=== PATIENT | male | born 1985 | race Caucasian/White ===

== ENCOUNTER 2017-04-26 15:48 | Emergency (ER) | payer OTHER ==
[~2017-04-26] VITALS: Ht 177.8 cm; Wt 137.0 kg
[2017-04-26 15:55] VITALS: TEMP 36.5; Ht 177.8 cm; Wt 137.0 kg
[2017-04-26] MEDS ORDERED: AMOXICILLIN/CLAVULANATE TAB 875 MG TAB PO ONE (16:45)
--- NOTE | 2017-04-26 17:20 | DIAGNOSTIC IMAGING REPORT ---
R VENOUS DOPP LOWER EXT UNILAT HISTORY: 31 years-old Male swelling acute swelling of the right lower extremity COMPARISON: None available TECHNIQUE: Multiple real-time sonographic images of the right lower extremity deep venous system were obtained assessing grayscale appearance, color and spectral flow FINDINGS: There is normal flow, phasicity, compressibility and augmentation of the right lower extremity deep venous structures. Mildly enlarged right inguinal lymph node is seen, 4.0 x 1.3 x 2.9 cm, nonspecific. IMPRESSION: 1. No sonographic evidence of deep venous thrombosis. 2. Mildly enlarged nonspecific right inguinal lymph node measures up to 1.3 cm in short axis. The above report was generated using voice recognition software. It may contain grammatical, syntax or spelling errors. Electronically signed by: Stu Clement M.D. 04/26/2017 5:19 PM Dictated Date/Time: 04/26/2017 5:12 PM
[2017-04-26] MEDS ORDERED: AMOX875T PO (17:40)
--- NOTE | 2017-04-26 17:41 | EMERGENCY ROOM VISIT NOTE ---
History Report prepared by Andrewibmel: Rodri Chavez Under the Supervision of: Dr. Kye Black D.O. First contact with patient: 16:00 Chief Complaint: LEG PAIN,LEG INJURY Stated Complaint: MODERATE PAIN,SWELLIN IN BOTH LEGS,POSSIBLY CELLUT History of Present Illness The patient is a 31 year old male who presents to the Emergency Room with complaints of a worsening right leg infection beginning about a month ago. His symptoms began with swelling in his ankle, but moves to the rest of his lower leg two weeks ago. He initially thought his symptoms were related to being on his feet a lot at work. The patient has no history of blood clots. He denies any calf pain. Source of History: patient Onset: about a month ago Position: leg (right lower) Quality: other (infection) Timing: worsening Note: The patient denies calf pain. Review of Systems See HPI for pertinent positives & negatives. A total of 10 systems reviewed and were otherwise negative. Past Medical & Surgical Medical Problems: (1) Depression (2) Heroin overdose Social History Problems: (1) Heroin abuse Family History No pertinent family history stated. Social History Smoking Status: Current Every Day Smoker Drug Use: heroin Marital Status: single Occupation Status: employed Current/Historical Medications Scheduled Amoxicillin & Pot Clavulanate (Augmentin 875-125 mg), 875 MG PO BID Allergies Coded Allergies: No Known Allergies (Unverified , 04/26/17) Physical Exam Vital Signs Date Time Temp Pulse Resp B/P (MAP) Pulse Ox O2 Delivery O2 Flow Rate FiO2 04/26/17 15:55 36.5 99 18 139/95 95 Room Air Physical Exam CONSTITUTIONAL/VITAL SIGNS: Reviewed / noted above. GENERAL: Non-toxic in appearance. INTEGUMENTARY: Warm, dry, and [place]. HEAD: Normocephalic. EYES: without scleral icterus or trauma. ENT/OROPHARYNX: clear and moist. LYMPHADENOPATHY/NECK: Is supple without lymphadenopathy or meningismus. RESPIRATORY: Lungs clear and equal. CARDIOVASCULAR: Regular rate and rhythm. GI/ABDOMEN: Soft and nontender. No organomegaly or pulsatile mass. No rebound or guarding. Normal bowel sounds. EXTREMITIES: Warm and well perfused. Right leg swelling and erythema below the knee. BACK: No CVA tenderness. NEUROLOGICAL: Intact without focal deficits. PSYCHIATRIC: normal affect. MUSCULOSKELETAL: Normally developed with good muscle tone. Medical Decision & Procedures ER Provider Diagnostic Interpretation: Radiology results as stated below per my review and radiologist interpretation: R VENOUS DOPP LOWER EXT UNILAT FINDINGS: There is normal flow, phasicity, compressibility and augmentation of the right lower extremity deep venous structures. Mildly enlarged right inguinal lymph node is seen, 4.0 x 1.3 x 2.9 cm, nonspecific. IMPRESSION: 1. No sonographic evidence of deep venous thrombosis. 2. Mildly enlarged nonspecific right inguinal lymph node measures up to 1.3 cm in short axis. The above report was generated using voice recognition software. It may contain grammatical, syntax or spelling errors. Electronically signed by: Stu Clement M.D. 04/26/2017 5:19 PM Medications Administered Medications (Trade) Dose Ordered Sig/Raine Route Start Time Stop Time Status Last Admin Dose Admin Amoxicillin/ Clavulanate Potassium (Augmentin Tab) 875 mg NOW ONCE PO 04/26/17 16:45 04/26/17 16:46 DC 04/26/17 16:49 875 MG ED Course 1601: Previous medical records were reviewed. The patient was evaluated in room A9B. A complete history and physical examination was performed. 1645: Ordered Augmentin Tab 875 mg PO. 1745: On reevaluation, the patient is resting comfortably. I discussed the results and findings with the patient. He verbalized agreement of the treatment plan. He was discharged home. Medical Decision Differential diagnosis: Etiologies such as cellulitis, abscess, MRSA infection, DVT, necrotizing fasciitis, dermatitis, drug eruption, as well as others were entertained. This is a 31-year-old male who presents to the ED with a chief complaint of redness to the right leg. The patient states that he has noticed worsening of the redness over the past couple of weeks. He denies any fevers, nausea or vomiting. He does report some swelling to the leg. His physical exam does reveal erythema primarily to the anterior portion of the leg between the knee and the ankle. There is some edema to the leg. Ultrasound did not show DVT. The patient was started on Augmentin. He was felt to be stable for discharge and outpatient follow-up. Prescription for Augmentin provided. Medication Reconcilliation Current Medication List: was personally reviewed by me Blood Pressure Screening Patient's blood pressure: Elevated blood pressure Blood pressure disposition: Elevated BP felt to be situational Impression Primary Impression: Cellulitis of leg, right Scribe Attestation The scribe's documentation has been prepared under my direction and personally reviewed by me in its entirety. I confirm that the note above accurately reflects all work, treatment, procedures, and medical decision making performed by me. Departure Information Dispostion Home / Self-Care Prescriptions Amoxicillin & Pot Clavulanate (Augmentin 875-125 mg) 1 Tab Tab 875 MG PO BID, #20 TAB Prov: Kye Black D.O. 04/26/17 Referrals No Doctor, Assigned (PCP) Patient Instructions Cellulitis Dc, My [facility] Additional Instructions Augmentin as prescribed. Follow-up with your doctor for further care and evaluation in 1-2 days. Return to the emergency department for worsening or new symptoms or any concerns. You have been examined and treated today on an emergency basis only. This is not a substitute for, or an effort to provide, complete comprehensive medical care. It is impossible to recognize and treat all injuries or illnesses in a single emergency department visit. It is therefore important that you follow up closely with your doctor. Call as soon as possible for an appointment.
[2017-04-26 18:06] VITALS: BP 134/95; PULSE 93; O2SAT 99
== END 2017-04-26 18:09 | disposition home or self-care (01) ==
LOC: C.EDB 15:50 → C.EDA 18:09
DX: L03.115 Cellulitis of right lower limb (principal); F32.9 Major depressive disorder, single episode, unspecified; F17.200 Nicotine dependence, unspecified, uncomplicated

== ENCOUNTER 2017-09-25 12:53 | Inpatient (IN) | payer OTHER ==
[~2017-09-25] VITALS: Ht 177.8 cm; Wt 150.5 kg
--- NOTE | 2017-09-25 14:35 | EMERGENCY ROOM VISIT NOTE ---
History Report prepared by Socrates: Chriss Brooks Under the Supervision of: Dr. Gale Ferreira D.O. First contact with patient: 14:32 Chief Complaint: OVERDOSE (ACCIDENTAL) Stated Complaint: heroin Nursing Triage Summary: pt arrives via EMS pt reports after partner and himself used heroin last night approx 0100or 0200 passed out on floor of apartment when he awoke partner was per EMS pt given narcan 0.4 mg IV pt currently awake and alert History of Present Illness The patient is a 31 year old male with a history of heroin abuse and major depression who presents to the Emergency Room with police via EMS with a persistent heroin overdose that started last night. He states that he is an occasional heroin user, and injects himself about once every other week. The patient says that he was using heroin last night at home, and was injecting himself. He notes that he did not take any more than he usually does. He says that he went to bed around 0130, and woke up around 8 hours ago, and was "feeling awful". The patient states that his right arm was in a lot of pain, and he could not even pecan picker a glass of water with that arm due to pain. He says that the pain is a lot better now. The patient adds that he was coughing up blood this morning, and says that he has never coughed up blood before. He states that he has been short of breath over the past 2 to 3 days. The patient says that he is a smoker. He notes that he did not mix the heroin with any other drugs or alcohol. He denies any recent cold symptoms, fevers, chills, recent nose bleeds, chest pain, recent dental procedures, changes in bowel movements, or changes in urine. Denies vomiting or diarrhea. The patient adds that he has had a stressful day today, as his friend this morning. He says that he found his friend, and the friend injected at the same time last night and went to bed at the same time last night at the patient's house. The patient adds that he used heroin when he woke up this morning around 0730. He states that he used 2 bags. The patient is on probation currently. EMS gave the patient 0.4 mg IV Narcan. Source of History: patient Onset: Last night Position: other (global) Symptom Intensity: used 2 bags Quality: other (heroin overdose) Timing: other (persistent) Associated Symptoms: + cough (up blood), + SOB, No fevers, No chills, No chest pain, No diarrhea, No urinary symptoms Note: Right arm pain upon waking. Denies cold symptoms, recent nose bleeds. Review of Systems See HPI for pertinent positives & negatives. A total of 10 systems reviewed and were otherwise negative. Past Medical & Surgical Medical Problems: (1) Depression (2) Depression (3) Heroin overdose (4) HTN (hypertension) (5) Pneumonia Social History Problems: (1) Heroin abuse Family History Diabetes mellitus FHx: cancer Heart disease Hypertension Lung disease Social History Smoking Status: Current Every Day Smoker Drug Use: heroin Marital Status: single Occupation Status: employed Current/Historical Medications No Active Prescriptions or Reported Meds Allergies Coded Allergies: No Known Allergies (Unverified , 09/25/17) Physical Exam Vital Signs Date Time Temp Pulse Resp B/P (MAP) Pulse Ox O2 Delivery O2 Flow Rate FiO2 09/25/17 17:47 119 09/25/17 17:03 113 20 155/96 93 Room Air 09/25/17 15:21 113 14 151/97 91 Room Air 09/25/17 14:17 100 20 119/72 93 Room Air 09/25/17 13:36 123 09/25/17 13:05 37.5 130 20 119/72 91 Room Air Physical Exam GENERAL: alert, mildly somnolent but answering questions, no distress EYE EXAM: normal conjunctiva, PERRL and EOM's grossly intact OROPHARYNX: no exudate, no erythema, lips, buccal mucosa, and tongue normal and mucous membranes are dry NECK: supple, no nuchal rigidity, no adenopathy, non-tender LUNGS: Clear to auscultation. Normal chest wall mechanics, no w/r/r HEART: no murmurs, S1 normal and S2 normal ABDOMEN: abdomen soft, non-tender, normo-active bowel sounds, no masses, no rebound or guarding. BACK: Back is symmetrical on inspection and there is no deformity, no midline tenderness, no CVA tenderness. SKIN: no rashes and no bruising UPPER EXTREMITIES: upper extremities are grossly normal. Full range of motion, normal pulses. LOWER EXTREMITIES: No pitting edema. Full range of motion, normal pulses. NEURO EXAM: Normal sensorium, cranial nerves II-XII grossly intact, normal speech, no gross weakness of arms, no gross weakness of legs. No drift. Gross sensation intact. Medical Decision & Procedures ER Provider Diagnostic Interpretation: X-ray results have been interpreted by the radiologist and reviewed by me. CHEST ONE VIEW PORTABLE CLINICAL HISTORY: 31 years-old Male presenting with hemoptysis. TECHNIQUE: Portable upright AP view of the chest was obtained. COMPARISON: 12/20/2014. FINDINGS: Cardiomediastinal silhouette normal. Diffuse hazy opacity throughout the right lung. No large pleural effusion or pneumothorax. Osseous structures normal. Upper abdomen normal. IMPRESSION: 1. Diffuse hazy infiltrate throughout the right lung can be seen in the setting of pulmonary hemorrhage or infection. Asymmetry argues against edema or aspiration. Electronically signed by: Mckay Quesada M.D. 09/25/2017 4:06 PM Dictated Date/Time: 09/25/2017 4:05 PM Laboratory Results Test 09/25/17 12:45 09/25/17 16:55 09/25/17 17:15 Immature Granulocyte % (Auto) 0.5 % White Blood Count 22.20 K/uL (4.8-10.8) Red Blood Count 5.18 M/uL (4.7-6.1) Hemoglobin 15.8 g/dL (14.0-18.0) Hematocrit 46.0 % (42-52) Mean Corpuscular Volume 88.8 fL (80-100) Mean Corpuscular Hemoglobin 30.5 pg (25-34) Mean Corpuscular Hemoglobin Concent 34.3 g/dl (32-36) Platelet Count 268 K/uL (130-400) Mean Platelet Volume 10.6 fL (7.4-10.4) Neutrophils (%) (Auto) 90.0 % Lymphocytes (%) (Auto) 5.5 % Monocytes (%) (Auto) 4.0 % Eosinophils (%) (Auto) 0.0 % Basophils (%) (Auto) 0.0 % Neutrophils # (Auto) 19.98 K/uL (1.4-6.5) Lymphocytes # (Auto) 1.22 K/uL (1.2-3.4) Monocytes # (Auto) 0.89 K/uL (0.11-0.59) Eosinophils # (Auto) 0.00 K/uL (0-0.5) Basophils # (Auto) 0.01 K/uL (0-0.2) Immature Granulocyte # (Auto) 0.10 K/uL (0.00-0.02) Magnesium Level 1.4 mg/dl (1.8-2.4) Total Bilirubin 0.5 mg/dl (0.2-1) Aspartate Amino Transf (AST/SGOT) 76 U/L (15-37) Alanine Aminotransferase (ALT/SGPT) 70 U/L (12-78) Alkaline Phosphatase 56 U/L (45-117) Total Protein 7.3 gm/dl (6.4-8.2) Albumin 4.0 gm/dl (3.4-5.0) Globulin 3.3 gm/dl (2.5-4.0) Albumin/Globulin Ratio 1.2 (0.9-2) Urine Opiates Screen POS (NEG) Urine Methadone, Qualitative NEG (NEG) Urine Barbiturates NEG (NEG) Urine Phencyclidine (PCP) Level NEG (NEG) Ur Amphetamine/Methamphetamine NEG (NEG) MDMA (Ecstasy) Screen NEG (NEG) Urine Benzodiazepines Screen NEG (NEG) Urine Cocaine Metabolite NEG (NEG) Urine Marijuana (THC) NEG (NEG) Prothrombin Time 11.0 SECONDS (9.0-12.0) Prothromb Time International Ratio 1.0 (0.9-1.1) D-Dimer 2690 ug/L FEU (0-500) Laboratory results per my review. Medications Administered Medications (Trade) Dose Ordered Sig/Raine Route Start Time Stop Time Status Last Admin Dose Admin Levofloxacin (Levaquin / D5W) 750 mg NOW STAT IV 09/25/17 16:26 09/25/17 16:27 DC 09/25/17 16:49 750 MG Sodium Chloride 1,000 ml @ 999 mls/hr Q1H1M STAT IV 09/25/17 17:35 09/25/17 18:35 DC 09/25/17 17:35 999 MLS/HR Aspirin/Aluminum/ Magnesium/Ca Carb (Ascriptin Tab) 325 mg NOW STAT PO 09/25/17 17:35 09/25/17 17:37 DC 09/25/17 18:18 325 MG ECG Per My Interpretation Indication: toxicologic Rate (beats per minute): 108 Rhythm: sinus tachycardia Findings: no acute ischemic change, no ectopy, other (normal axis, normal intervals) ED Course 1500: The patient was evaluated in room B3B. A complete history and physical exam was performed. 1626: Levaquin / D5W 750 mg IV. 1722: Upon reevaluation, the patient is resting. I discussed the findings and the treatment plan with the patient. He expresses agreement and understanding. He will be evaluated for further management. 1735: Ascriptin Tab 325 mg PO, NSS 1000 ml @ 999 mls/hr IV. 1738: I reviewed the patient's case with Dr. John RICKS ear muff assembler. She will evaluate the patient for further management. 1800: Updated Dr. Lopez on elevated d-dimer. I feel this is more likely related to the patient's underlying infection. Patient otherwise with no overt risk factors for DVT/PE. She is comfortable following up at this time, does not feel an urgent CT angiogram chest needs to be ordered. Medical Decision Differential diagnosis: Etiologies such as toxicologic, infection, hypoglycemia, electrolyte abnormalities, cardiac sources, intracerebral event, neurologic, as well as others were entertained. Patient initially covered for pneumonia with Levaquin as a possible community- acquired pneumonia in patients known tobacco abuse as patient not hypoxic and with no respiratory distress here, is not highly suspicious of aspiration pneumonia. Upon additional lab work findings, patient found to have leukocytosis, acute kidney injury, as well as elevated troponin. I feel the elevated troponin is less likely due to ACS or primary cardiac etiology, likely secondary to the pneumonia as well as elevated kidney function. Discussed with patient at length the risks of his continued heroin abuse, as well as concern for possible aspiration pneumonia in the setting of his recent heroin abuse. Blood cultures drawn as a precaution. Patient hemodynamically stable throughout , not requiring any supplemental oxygen. Discussed with hospitalist for additional evaluation and treatment. Discussed with them possible indication for additional antibiotic coverage, they would like to evaluate him first prior to adding any additional antibiotics. Medication Reconcilliation Current Medication List: was personally reviewed by me Blood Pressure Screening Patient's blood pressure: Normal blood pressure Consults Time Called: 1732 Consulting Physician: Dr. John RICKS ear muff assembler Returned Call: [phone] I reviewed the patient's case with Dr. John RICKS ear muff assembler. She will evaluate the patient for further management. Impression Primary Impression: Aspiration pneumonia Additional Impressions: Elevated troponin KATHLEEN (acute kidney injury) Heroin abuse Scribe Attestation The scribe's documentation has been prepared under my direction and personally reviewed by me in its entirety. I confirm that the note above accurately reflects all work, treatment, procedures, and medical decision making performed by me. Departure Information Dispostion Being Evaluated By Hospitalist Prescriptions No Active Prescriptions or Reported Meds Referrals No Doctor, Assigned (PCP) Patient Instructions My [facility] Health Problem Qualifiers Primary Impression: Aspiration pneumonia Aspiration pneumonia type: unspecified Laterality: right Lung location: middle lobe of lung Qualified Codes: J69.0 - Pneumonitis due to inhalation of food and vomit
--- NOTE | 2017-09-25 16:07 | DIAGNOSTIC IMAGING REPORT ---
CHEST ONE VIEW PORTABLE CLINICAL HISTORY: 31 years-old Male presenting with hemoptysis. TECHNIQUE: Portable upright AP view of the chest was obtained. COMPARISON: 12/20/2014. FINDINGS: Cardiomediastinal silhouette normal. Diffuse hazy opacity throughout the right lung. No large pleural effusion or pneumothorax. Osseous structures normal. Upper abdomen normal. IMPRESSION: 1. Diffuse hazy infiltrate throughout the right lung can be seen in the setting of pulmonary hemorrhage or infection. Asymmetry argues against edema or aspiration. Electronically signed by: Mckay Quesada M.D. 09/25/2017 4:06 PM Dictated Date/Time: 09/25/2017 4:05 PM
[2017-09-25] MEDS ORDERED: LEVAQUIN 750MG / 150ML D5W IV STA (16:26)
[2017-09-25 16:51] LABS: BASO ABS # 0.01 K/uL (0-0.2); HEMOGLOBIN 15.8 g/dL (14.0-18.0); LYMPH % 5.5 %; LYMPH ABS # 1.22 K/uL (1.2-3.4); MEAN CELL VOLUME 88.8 fL (80-100); MEAN CORPUSCULAR HEMOGLOBIN 30.5 pg (25-34); MEAN CORPUSCULAR HGB CONC 34.3 g/dl (32-36); MEAN PLATELET VOLUME 10.6 fL (7.4-10.4); MONO ABS # 0.89 K/uL (0.11-0.59); NEUT ABS # 19.98 K/uL (1.4-6.5); PLATELET COUNT 268 K/uL (130-400); RED CELL DISTRIBUTION WIDTH CV 13.8 % (11.5-14.5)
[2017-09-25 16:56] LABS: CALCIUM 8.5 mg/dl (8.5-10.1); CREATININE 1.79 mg/dl (0.60-1.40); POTASSIUM 4.3 mmol/L (3.5-5.1)
[2017-09-25 17:05] LABS: TOTAL PROTEIN 7.3 gm/dl (6.4-8.2)
[2017-09-25] MEDS ORDERED: SODIUM CHLORIDE 0.9% 1000ML 1,000 ML IV STA (17:35)
[2017-09-25] MEDS ORDERED: ASPIRIN/ALUM/MAGNES/CAL CARB 325 MG TAB PO STA (17:35)
[2017-09-25] MEDS ORDERED: NITROGLYCERIN 0.4 MG SL PER TAB CHARGE SL PRN (18:15)
[2017-09-25] MEDS ORDERED: HydrALAZINE HCL 20 MG/ML VIAL IV. PRN (18:15)
[2017-09-25] MEDS ORDERED: ACETAMINOPHEN 325 MG TAB PO PRN (18:15)
[2017-09-25] MEDS ORDERED: MAGNESIUM HYDROXIDE SUSP 30 ML UDC PO PRN (18:15)
[2017-09-25] MEDS ORDERED: ALUMINUM/MAGNESIUM/SIMETH (MAALOX MAX) 30 ML UDC PO PRN (18:15)
[2017-09-25] MEDS ORDERED: POLYETHYLENE (MIRALAX) 17 GM PACK PO PRN (18:15)
[2017-09-25] MEDS ORDERED: ONDANSETRON INJ 2 MG/ML 2 ML VIAL IV PRN (18:15)
[2017-09-25] MEDS ORDERED: ALBUT/IPRATROP 3MG/0.5MG NEB 3 ML VIAL INH PRN (18:30)
--- NOTE | 2017-09-25 18:30 | History and Physical ---
History & Physical Date & Time of Service: Sep 25, 2017 at 18:13 Chief Complaint: heroin Primary Care Physician: No Doctor, Assigned History of Present Illness Source: patient, family, clinic records, hospital records Patient is a 31 y/o male, with PMHx of major depression and heroin abuse, who presented to the ED because of heroin overdose. Patient states he used heroin last evening and went to sleep around 0130. When he woke up this AM, he "felt terrible." He notes one episode of coughing up blood. He then used again this AM. He was 4 weeks clean. When he woke up this AM, he found his partner beside him. The partner also used heroin last evening. He denies any other drug use. Denies alcohol use. He notes he did follow w/ psychiatry in the past but currently does not have insurance so stopped. He feels very depressed at present. Father/friend at bedside states this is his 3rd episode of overdose. They are very concerned for his safety and request he be watched closely tonight. Patient states he would like to speak to psychiatry and is interested in inpatient help. Patient denies any fever, chills, sweats, lightheadedness, dizziness, vision changes, CP, palpitations, edema, SOB, wheezing, cough, abdominal pain, nausea, vomiting, diarrhea, urinary symptoms, melena, numbness/tingling, weakness, muscle/joint pain, anxiety/depression, active bleeding, or new skin discoloration/changes. Past Medical/Surgical History Medical Problems: major depression Heroin abuse Obesity Family History Diabetes mellitus FHx: cancer Heart disease Hypertension Lung disease Social History Smoking Status: Current Every Day Smoker Drug Use: heroin Marital Status: single Occupational Status: employed Allergies Coded Allergies: No Known Allergies (Unverified , 09/25/17) Home Medications No Active Prescriptions or Reported Meds Physical Exam Vital Signs Date Time Temp Pulse Resp B/P (MAP) Pulse Ox O2 Delivery O2 Flow Rate FiO2 09/25/17 17:47 119 09/25/17 17:03 113 20 155/96 93 Room Air 09/25/17 15:21 113 14 151/97 91 Room Air 09/25/17 14:17 100 20 119/72 93 Room Air 09/25/17 13:36 123 09/25/17 13:05 37.5 130 20 119/72 91 Room Air General Appearance: no apparent distress, + obese Head: normocephalic, atraumatic Eyes: normal inspection, PERRL ENT: hearing grossly normal Neck: supple Respiratory/Chest: lungs clear, no respiratory distress, no accessory muscle use Cardiovascular: regular rate, rhythm Abdomen/GI: normal bowel sounds, non tender, soft Back: normal inspection Extremities/Musculoskelatal: no calf tenderness, no pedal edema Neurologic/Psych: alert, normal mood/affect, oriented x 3 Skin: normal color, warm/dry, no rash Diagnostics Laboratory Results Results Past 24 Hours Test 09/25/17 12:45 09/25/17 16:55 09/25/17 17:15 Range/Units White Blood Count 22.20 4.8-10.8 K/uL Red Blood Count 5.18 4.7-6.1 M/uL Hemoglobin 15.8 14.0-18.0 g/dL Hematocrit 46.0 42-52 % Mean Corpuscular Volume 88.8 80-100 fL Mean Corpuscular Hemoglobin 30.5 25-34 pg Mean Corpuscular Hemoglobin Concent 34.3 32-36 g/dl Platelet Count 268 130-400 K/uL Mean Platelet Volume 10.6 7.4-10.4 fL Neutrophils (%) (Auto) 90.0 % Lymphocytes (%) (Auto) 5.5 % Monocytes (%) (Auto) 4.0 % Eosinophils (%) (Auto) 0.0 % Basophils (%) (Auto) 0.0 % Neutrophils # (Auto) 19.98 1.4-6.5 K/uL Lymphocytes # (Auto) 1.22 1.2-3.4 K/uL Monocytes # (Auto) 0.89 0.11-0.59 K/uL Eosinophils # (Auto) 0.00 0-0.5 K/uL Basophils # (Auto) 0.01 0-0.2 K/uL RDW Standard Deviation 45.0 36.4-46.3 fL RDW Coefficient of Variation 13.8 11.5-14.5 % Immature Granulocyte % (Auto) 0.5 % Immature Granulocyte # (Auto) 0.10 0.00-0.02 K/uL Sodium Level 136 136-145 mmol/L Potassium Level 4.3 3.5-5.1 mmol/L Chloride Level 103 98-107 mmol/L Carbon Dioxide Level 22 21-32 mmol/L Anion Gap 11.0 3-11 mmol/L Blood Urea Nitrogen 22 7-18 mg/dl Creatinine 1.79 0.60-1.40 mg/dl Est Creatinine Clear Calc Drug Dose 85.9 ml/min Estimated GFR () 56.8 Estimated GFR (Non- 49.0 BUN/Creatinine Ratio 12.3 10-20 Random Glucose 129 70-99 mg/dl Calcium Level 8.5 8.5-10.1 mg/dl Magnesium Level 1.4 1.8-2.4 mg/dl Total Bilirubin 0.5 0.2-1 mg/dl Aspartate Amino Transf (AST/SGOT) 76 15-37 U/L Alanine Aminotransferase (ALT/SGPT) 70 12-78 U/L Alkaline Phosphatase 56 45-117 U/L Troponin I 0.371 0-0.045 ng/ml Total Protein 7.3 6.4-8.2 gm/dl Albumin 4.0 3.4-5.0 gm/dl Globulin 3.3 2.5-4.0 gm/dl Albumin/Globulin Ratio 1.2 0.9-2 Urine Opiates Screen POS NEG Urine Methadone, Qualitative NEG NEG Urine Barbiturates NEG NEG Urine Phencyclidine (PCP) Level NEG NEG Ur Amphetamine/Methamphetamine NEG NEG MDMA (Ecstasy) Screen NEG NEG Urine Benzodiazepines Screen NEG NEG Urine Cocaine Metabolite NEG NEG Urine Marijuana (THC) NEG NEG Prothrombin Time 11.0 9.0-12.0 SECONDS Prothromb Time International Ratio 1.0 0.9-1.1 D-Dimer 2690 0-500 ug/L FEU Microbiology Results 09/25/17 Blood Culture, Ordered Pending 09/25/17 Blood Culture, Ordered Pending Diagnostic Radiology CHEST ONE VIEW PORTABLE CLINICAL HISTORY: 31 years-old Male presenting with hemoptysis. TECHNIQUE: Portable upright AP view of the chest was obtained. COMPARISON: 12/20/2014. FINDINGS: Cardiomediastinal silhouette normal. Diffuse hazy opacity throughout the right lung. No large pleural effusion or pneumothorax. Osseous structures normal. Upper abdomen normal. IMPRESSION: 1. Diffuse hazy infiltrate throughout the right lung can be seen in the setting of pulmonary hemorrhage or infection. Asymmetry argues against edema or aspiration. Electronically signed by: Mckay Quesada M.D. 09/25/2017 4:06 PM Dictated Date/Time: 09/25/2017 4:05 PM The status of this report is Signed. Draft = Not yet reviewed or approved by Radiologist. Signed = Reviewed and approved by Radiologist. EKG JOSEFINA WOODS ID:[id number] 25-SEP-2017 15:47:11 [facility] Sinus tachycardia Possible Anterior infarct , age undetermined Abnormal ECG When compared with ECG of 20-DEC-2014 07:26, No significant change was found Confirmed by TICO LANDIS ([id number]) on 09/25/2017 4:55:47 PM 25mm/s 10mm/mV 150Hz 8.0 SP2 12SL 241 WAQAS: 0 Referred by: Referred Self Confirmed By: TICO Yates. rate 108 BPM KS interval 138 ms QRS duration 78 ms QT/QTc 328/439 ms P-R-T axes 34 -13 22 1985 (31 yr) Male 0lb Room:[facility] Loc:15 Burner Tender:Kanika Farias ind: Impression Assessment and Plan Patient is a 31 y/o male, with PMHx of major depression and heroin abuse, who presented to the ED because of heroin overdose. Elevated troponin, likely demand ischemia: - Admit to tele for cardiac monitoring - Trend cardiac enzymes - Obtain ECHO - Nitro PRN for chest pain R-sided PNA: - IV Levaquin - DuoNeb PRN for SOB/wheezing - BCx, sputum culture, UA pending - Leukocytosis at 22- follow CBC - Elevated d-dimer, low likeness of PE- continue to monitor and consider CTA KATHLEEN: - IV NSS @ 125 ml/hr x1 bag - Follow PRP Heroin abuse, major depression: - Consult psychiatry, appreciate recommendations - Place on one-to-one observation Tobacco abuse: - Nicotine patch - Smoking cessation counselling DVT prophylaxis: TEDs/SCDs; hold chemical anticoagulation due to hemoptysis Code status: LEVEL I, FULL Dispo: From home- would like inpatient rehab- CM consulted Resuscitation Status LEVEL I, FULL VTE Prophylaxis Will order VTE Prophylaxis: Yes
[2017-09-25 19:41] VITALS: BP 116/78; PULSE 97; TEMP 37.2; O2SAT 96; Ht 177.8 cm; Wt 150.5 kg
[2017-09-25] MEDS: NICOTINE 14 MG/24 HR TDSY TD SCH (20:37)
[2017-09-25] MEDS: SODIUM CHLORIDE 0.9% 1000ML 1,000 ML IV SCH (20:37)
[2017-09-25 21:42] LABS: CKMB 69.1 ng/ml (0.5-3.6)
[2017-09-25 23:10] VITALS: BP 102/66; PULSE 93; TEMP 36.7; O2SAT 92
[2017-09-26] VITALS (7 sets, daily range): BP systolic 105–147; BP diastolic 75–91; PULSE 92–102; TEMP 36.7–37; O2SAT 91–95
[2017-09-26] MEDS: SODIUM CHLORIDE 0.9% 1000ML 1,000 ML IV SCH (03:32)
[2017-09-26 04:11] LABS: HEMATOCRIT 37.9 % (42-52); HEMOGLOBIN 13.1 g/dL (14.0-18.0); MEAN CELL VOLUME 87.5 fL (80-100); MEAN CORPUSCULAR HEMOGLOBIN 30.3 pg (25-34); MEAN CORPUSCULAR HGB CONC 34.6 g/dl (32-36); MEAN PLATELET VOLUME 9.9 fL (7.4-10.4); PLATELET COUNT 194 K/uL (130-400); RED CELL DISTRIBUTION WIDTH CV 13.8 % (11.5-14.5); RED CELL DISTRIBUTION WIDTH SD 44.2 fL (36.4-46.3); WHITE BLOOD COUNT 12.82 K/uL (4.8-10.8)
[2017-09-26 04:36] LABS: BLOOD UREA NITROGEN 17 mg/dl (7-18); CALCIUM 8.1 mg/dl (8.5-10.1); CARBON DIOXIDE 27 mmol/L (21-32); CREATININE 0.83 mg/dl (0.60-1.40); GLUCOSE 90 mg/dl (70-99); POTASSIUM 3.3 mmol/L (3.5-5.1); SODIUM 136 mmol/L (136-145)
[2017-09-26 04:46] LABS: CKMB 41.7 ng/ml (0.5-3.6)
[2017-09-26] MEDS ORDERED: PERFLUTREN LIPID MICROSPHERE (DEFINITY) IV ONE (06:59)
[2017-09-26] MEDS ORDERED: POTASSIUM CHLORIDE 10 MEQ TABCR PO STA (08:57)
[2017-09-26] MEDS: NICOTINE 14 MG/24 HR TDSY TD SCH (10:19)
--- NOTE | 2017-09-26 11:15 | Hospitalist Progress Note ---
Hospitalist Progress Note Date of Service Sep 26, 2017. Subjective Pt evaluation today including: conversation w/ patient, conversation w/ groundwater consultant (Psychiatric nurse liaison) Voiding: no voiding problems Patient reports he had $0.50 piece sized red blood globs that he was coughing up yesterday, this morning it is improved and now his sputum looks dark brown in nature. He does feel a little short of breath, but denies chest pain. He denies headache, abdominal pain, nausea, vomiting, or diarrhea, or constipation. No urinary symptoms. He is having pain in the right bicep that started yesterday when he woke up and his right arm is swollen. He denies injecting in that arm, notes that for the last few days he has been injecting only in the left upper extremity. He has a history of several ER visits in the last few years for heroin overdoses, denies any other drug use. He is unsure if this heroin was placed with anything else. He reports he did vomit once yesterday and when he woke up after long coughing spell, but did not notice any vomitus on his clothes or around him when he first woke up. Denies fevers or chills at home, feels a little hot here. He reports a long history of depression, but stopped seeing psychiatrist and stopped taking citalopram last year when he could not no longer afford his health insurance. He admits to passive suicidal ideations, but has no plans to do so currently. Denies homicidal ideations. He woke up to find his partner face down in the bed yesterday. He is quite saddened by this. Constitutional: No fever Eyes: No worsening of vision ENT: + sore throat (a bit this morning) Respiratory: + cough, + sputum, + shortness of breath, + hemoptysis Cardiovascular: No chest pain Breast: No problem reported Abdomen: No pain, No nausea, No vomiting, No diarrhea, No constipation, No GI bleeding Musculoskeletal: + muscle pain (Right biceps as above) Male : No dysuria, No problem reported Neurologic: No problem reported Psychiatric: + depression symptoms, + substance abuse Heme: No problem reported Endo: No problem reported Skin: No problem reported All Other Systems: Reviewed and Negative Objective Vital Signs Telemetry review shows sinus tachycardia to the low 100s at most, PVCs, bigeminy Date Time Temp Pulse Resp B/P (MAP) Pulse Ox O2 Delivery O2 Flow Rate FiO2 09/26/17 07:30 Room Air 09/26/17 07:07 36.8 92 22 137/75 (95) 91 Room Air 09/26/17 04:00 91 Room Air 09/26/17 03:10 36.7 102 21 105/89 (94) 91 Room Air 09/26/17 00:00 92 Room Air 09/25/17 23:10 36.7 93 20 102/66 (78) 92 Room Air 09/25/17 19:41 37.2 97 17 116/78 96 Room Air 09/25/17 18:18 115 20 155/96 95 Room Air 09/25/17 17:47 119 09/25/17 17:03 113 20 155/96 93 Room Air 09/25/17 15:21 113 14 151/97 91 Room Air 09/25/17 14:17 100 20 119/72 93 Room Air 09/25/17 13:36 123 09/25/17 13:05 37.5 130 20 119/72 91 Room Air Physical Exam General Appearance: WD/WN, no apparent distress, + obese Eyes: normal inspection, PERRL, EOMI, sclerae normal ENT: hearing grossly normal, pharynx normal Neck: supple, no adenopathy, thyroid normal, no JVD, trachea midline Respiratory/Chest: no respiratory distress, no accessory muscle use, + rhonchi (On right lower and middle lung mortensen) Cardiovascular: regular rate, rhythm, no gallop, no murmur Abdomen: normal bowel sounds, non tender, soft, no organomegaly Extremities: no pedal edema, no calf tenderness, + swelling (Right upper extremity is with nonpitting edema mostly from the elbow through the fingertips , no erythema at all, no track evans on the right upper extremity, no palpable cords, positive pain with resisted flexion at the elbow, no point tenderness over the elbow wrist or hand or finger joints.) Neurologic/Psychiatric: alert, oriented x 3, + depressed affect Skin: normal color, warm/dry, no rash, + pertinent finding (Track evans on the left upper extremity, no ulcerations on the legs or feet) Lymphatic: no adenopathy Laboratory Results Last 24 Hours Test 09/25/17 12:45 09/25/17 16:55 09/25/17 17:15 09/25/17 20:00 White Blood Count 22.20 K/uL Red Blood Count 5.18 M/uL Hemoglobin 15.8 g/dL Hematocrit 46.0 % Mean Corpuscular Volume 88.8 fL Mean Corpuscular Hemoglobin 30.5 pg Mean Corpuscular Hemoglobin Concent 34.3 g/dl Platelet Count 268 K/uL Mean Platelet Volume 10.6 fL Neutrophils (%) (Auto) 90.0 % Lymphocytes (%) (Auto) 5.5 % Monocytes (%) (Auto) 4.0 % Eosinophils (%) (Auto) 0.0 % Basophils (%) (Auto) 0.0 % Neutrophils # (Auto) 19.98 K/uL Lymphocytes # (Auto) 1.22 K/uL Monocytes # (Auto) 0.89 K/uL Eosinophils # (Auto) 0.00 K/uL Basophils # (Auto) 0.01 K/uL RDW Standard Deviation 45.0 fL RDW Coefficient of Variation 13.8 % Immature Granulocyte % (Auto) 0.5 % Immature Granulocyte # (Auto) 0.10 K/uL Sodium Level 136 mmol/L Potassium Level 4.3 mmol/L Chloride Level 103 mmol/L Carbon Dioxide Level 22 mmol/L Anion Gap 11.0 mmol/L Blood Urea Nitrogen 22 mg/dl Creatinine 1.79 mg/dl Est Creatinine Clear Calc Drug Dose 85.9 ml/min Estimated GFR () 56.8 Estimated GFR (Non- 49.0 BUN/Creatinine Ratio 12.3 Random Glucose 129 mg/dl Calcium Level 8.5 mg/dl Magnesium Level 1.4 mg/dl Total Bilirubin 0.5 mg/dl Aspartate Amino Transf (AST/SGOT) 76 U/L Alanine Aminotransferase (ALT/SGPT) 70 U/L Alkaline Phosphatase 56 U/L Troponin I 0.371 ng/ml Total Protein 7.3 gm/dl Albumin 4.0 gm/dl Globulin 3.3 gm/dl Albumin/Globulin Ratio 1.2 Urine Opiates Screen POS Urine Methadone, Qualitative NEG Urine Barbiturates NEG Urine Phencyclidine (PCP) Level NEG Ur Amphetamine/Methamphetamine NEG MDMA (Ecstasy) Screen NEG Urine Benzodiazepines Screen NEG Urine Cocaine Metabolite NEG Urine Marijuana (THC) NEG Prothrombin Time 11.0 SECONDS Prothromb Time International Ratio 1.0 D-Dimer 2690 ug/L FEU Creatine Kinase MB Ratio Test 09/25/17 21:00 09/26/17 02:25 09/26/17 03:47 Creatine Kinase MB 69.1 ng/ml 41.7 ng/ml Troponin I 0.262 ng/ml 0.182 ng/ml Urine Color YELLOW Urine Appearance CLOUDY Urine pH 5.0 Urine Specific Morley 1.022 Urine Protein NEG Urine Glucose (UA) NEG Urine Ketones NEG Urine Occult Blood NEG Urine Nitrite NEG Urine Bilirubin NEG Urine Urobilinogen NEG Urine Leukocyte Esterase NEG Urine WBC (Auto) 1-5 /hpf Urine RBC (Auto) 0-4 /hpf Urine Hyaline Casts (Auto) 1-5 /lpf Urine Epithelial Cells (Auto) 5-10 /lpf Urine Bacteria (Auto) NEG White Blood Count 12.82 K/uL Red Blood Count 4.33 M/uL Hemoglobin 13.1 g/dL Hematocrit 37.9 % Mean Corpuscular Volume 87.5 fL Mean Corpuscular Hemoglobin 30.3 pg Mean Corpuscular Hemoglobin Concent 34.6 g/dl RDW Standard Deviation 44.2 fL RDW Coefficient of Variation 13.8 % Platelet Count 194 K/uL Mean Platelet Volume 9.9 fL Sodium Level 136 mmol/L Potassium Level 3.3 mmol/L Chloride Level 103 mmol/L Carbon Dioxide Level 27 mmol/L Anion Gap 6.0 mmol/L Blood Urea Nitrogen 17 mg/dl Creatinine 0.83 mg/dl Est Creatinine Clear Calc Drug Dose 187.2 ml/min Estimated GFR () 134.9 Estimated GFR (Non- 116.4 BUN/Creatinine Ratio 20.5 Random Glucose 90 mg/dl Calcium Level 8.1 mg/dl Creatine Kinase MB Ratio Diagnostic Results Chest x-ray images personally reviewed by me and reveals diffuse right-sided opacity with obscuring of the right heart border Assessment and Plan Patient is a 31 y/o male, with PMHx of major depressive disorder, obesity, and heroin abuse, who presented to the ED because of heroin overdose and hemoptysis. Elevated troponin, likely demand ischemia: Serial troponins mildly elevated and decreased since admission, with initial troponin being 0.371. Likely secondary to aspiration pneumonitis and heroin overdose as below. No significant events on telemetry monitoring. ECGs without ischemic changes. No chest pain at all -Echocardiogram result is pending -Okay to transfer to medical floor Right-sided aspiration pneumonitis/hemoptysis/sepsis POA-likely aspirated while sleeping with respiratory depression from heroin overdose. Leukocytosis and sinus tachycardia on admission are now resolved. Remains afebrile. Hemoptysis is improving today. Chest x-ray with diffuse right sided opacities suggestive of pulmonary hemorrhage or infection -Continue IV Levaquin and add IV clindamycin for better coverage for aspiration -Consult pulmonary given hemoptysis to see if needs further evaluation -Supplemental O2 as needed-currently not needing - DuoNeb PRN for SOB/wheezing - BCx, sputum culture pending no growth to date - follow CBC - Elevated d-dimer, likely secondary to acute infectious process, but does have right upper extremity edema and pain-checking venous Doppler of the right upper extremity -Received IV fluids and now discontinued -Repeat chest x-ray in the morning Right upper extremity edema and pain-could be musculoskeletal as he was unconscious and he does not know if he had a fall. There is no evidence of acute infection or palpable cord of thrombophlebitis at this time. -Check right upper extremity venous Doppler -Supportive care KATHLEEN: Creatinine 1.79 on admission and now resolved down to 0.83 with IV fluid hydration - Follow PRP Major depressive disorder, recurrent-previously seen by psych and on citalopram , but discontinued due to lack of health insurance. With passive SI, no plans at this time. Remains on one-to-one - Consult psychiatry, appreciate recommendations -Can likely discontinue one-to-one observation but will await psychiatry recommendations -Needs help with getting into outpatient psychiatric treatment with lack of health insurance IV drug [id number] other substance abuse except occasional alcohol with 3-4 drinks at a time sporadically. -Patient consents to checking for HIV and acute hepatitis -Counseled on abstinence -He may be interested in rehab-appreciate if case management can help with options for this Tobacco abuse: - Nicotine patch - Smoking cessation counseling DVT prophylaxis: TEDs/SCDs; hold chemical anticoagulation due to hemoptysis Code status: LEVEL I, FULL Dispo: Transfer to medical floor, can likely be discharged home tomorrow if continues to improve and if no placement in inpatient psychiatry or inpatient drug rehab There is mention in the notes from social sciences department chair in the ER that he is on probation and there is a possibility of incarceration after discharge
--- NOTE | 2017-09-26 11:30 | ECHOCARDIOGRAM REPORT ---
*NOTICE TO RECEIVING [employer] This information is strictly Confidential and protected under [place] law. [place] law prohibits you from making any further disclosure of this information unless further disclosure is expressly permitted by the written consent of the person to whom it pertains or is authorized by law. A general authorization for the release of medical or other information is not sufficient for this purpose. Hospital accepts no responsibility if the information is made available to any other person, INCLUDING THE PATIENT. Interpretation Summary * Name: JOSEFINA WOODS Study Date: 09/26/2017 06:32 AM BP: 137/75 mmHg * Patient Location: .2E\S\E210\S\1 HR: 92 * : 1985 (M/d/yyyy) Gender: Male Height: 73 in * Age: 31 yrs Ethnicity: [place] Weight: 300 lb * Ordering Physician: Kyugn Steve * Referring Physician: Self, Referred * Performed By: Holly Reinoso RDCS * * Reason For Study: ELEVATED TROP * BSA: 2.6 m2 * -- Conclusions -- * Left ventricular systolic function is normal. * Right ventricular systolic pressure is elevated at 30-40mmHg. Procedure Details * A complete two-dimensional transthoracic echocardiogram was performed (2D, M-mode, Doppler and color flow Doppler). * A contrast injection of Definity was performed to improve assessment of LV function. * Contrast was injected into an intravenous site in the left arm. * One vial of Definity ultrasound contrast was diluted in normal saline to a total volume of 10 ml. A total of '2' ml of solution was administered during imaging. * Lot # [id number] of Definity utilized for procedure. * Expiration date OCT 05. * The attending nurse who injected the contrast agent was CHAYITO BENITEZ RN. Left Ventricle * The left ventricle is normal in size. * There is normal left ventricular wall thickness. * Ejection Fraction = 55-60%. * Left ventricular systolic function is normal. * The left ventricular wall motion is normal. Right Ventricle * The right ventricle is normal in size and function. * The right ventricular systolic function is normal as assessed by tricuspid annular plane systolic excursion (TAPSE) (normal >1.5 cm). Atria * The left atrial size is normal. * Right atrial size is normal. Mitral Valve * The mitral valve is grossly normal. * Significant mitral regurgitation is absent. Tricuspid Valve * The tricuspid valve is not well visualized, but is grossly normal. * There is mild tricuspid regurgitation. * Right ventricular systolic pressure is elevated at 30-40mmHg. Aortic Valve * The aortic valve is not well visualized. * No hemodynamically significant valvular aortic stenosis. * There is no significant aortic regurgitation. Great Vessels * The aortic root is normal size. Pericardium/Pleural * There is no pericardial effusion. Great Vessels * Normal inferior vena cava diameter and respiratory variation suggests normal central venous pressure. MMode 2D Measurements and Calculations IVSd 1.2 cm IVSs 1.7 cm LVIDd 4.2 cm LVIDs 2.8 cm LVPWd 1.1 cm LVPWs 1.7 cm IVS/LVPW 1.1 FS 33.2 % EDV(Teich) 80.2 ml ESV(Teich) 30.3 ml EF(Teich) 62.2 % EDV(cubed) 76.1 ml ESV(cubed) 22.7 ml EF(cubed) 70.2 % % IVS thick 37.3 % % LVPW thick 44.8 % LV mass(C)d 179.6 grams LV mass(C)dI 70.3 grams/m\S\2 LV mass(C)s 180.0 grams LV mass(C)sI 70.4 grams/m\S\2 SV(Teich) 49.9 ml SI(Teich) 19.5 ml/m\S\2 SV(cubed) 53.4 ml SI(cubed) 20.9 ml/m\S\2 Ao root diam 3.7 cm Ao root area 11.0 cm\S\2 LA dimension 2.9 cm LA/Ao 0.79 LVAd ap4 38.7 cm\S\2 LVLd ap4 9.3 cm EDV(MOD-sp4) 131.8 ml EDV(sp4-el) 136.8 ml LVAs ap4 22.2 cm\S\2 LVLs ap4 7.6 cm ESV(MOD-sp4) 52.9 ml ESV(sp4-el) 54.9 ml EF(MOD-sp4) 59.9 % EF(sp4-el) 59.9 % LVAd ap2 38.5 cm\S\2 LVLd ap2 8.9 cm EDV(MOD-sp2) 135.6 ml EDV(sp2-el) 141.1 ml LVAs ap2 23.7 cm\S\2 LVLs ap2 7.6 cm ESV(MOD-sp2) 60.4 ml ESV(sp2-el) 63.1 ml EF(MOD-sp2) 55.4 % EF(sp2-el) 55.3 % LVLd %diff -4.49 % EDV(MOD-bp) 137.6 ml LVLs %diff -0.16 % ESV(MOD-bp) 56.8 ml EF(MOD-bp) 58.7 % SV(MOD-sp4) 79.0 ml SI(MOD-sp4) 30.9 ml/m\S\2 SV(MOD-sp2) 75.2 ml SI(MOD-sp2) 29.4 ml/m\S\2 SV(MOD-bp) 80.8 ml SI(MOD-bp) 31.6 ml/m\S\2 SV(sp4-el) 82.0 ml SI(sp4-el) 32.1 ml/m\S\2 SV(sp2-el) 78.1 ml SI(sp2-el) 30.5 ml/m\S\2 Doppler Measurements and Calculations Ao V2 max 118.2 cm/sec Ao max PG 5.6 mmHg Ao max PG (full) 0.99 mmHg LV V1 max PG 4.6 mmHg LV V1 max 107.2 cm/sec TR max sean 266.9 cm/sec
--- NOTE | 2017-09-26 11:40 | DIAGNOSTIC IMAGING REPORT ---
RIGHT UPPER EXTREMITY VENOUS DOPPLER HISTORY: Right upper extremity edema, rule out DVT COMPARISON STUDY: None. FINDINGS: The right internal jugular vein is patent. There is normal flow within the right subclavian vein. There is normal flow and compressibility within the right axillary, basilic, brachial, radial, ulnar, and visualized cephalic veins. IMPRESSION: No DVT within the right upper extremity. Electronically signed by: Mukul Maldonado M.D. 09/26/2017 11:39 AM Dictated Date/Time: 09/26/2017 11:39 AM
[2017-09-26 13:22] LABS: HEP C IGG 13 YRS+OLDER_RFLX PRELIM POS (NEG)
[2017-09-26] MEDS: CLINDAMYCIN IV 600 MG in DEXTROSE 5% 50ML 50 ML IV SCH ×2 (13:31→22:06)
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
--- NOTE | 2017-09-26 15:23 | Pulmonary Consultation ---
History General Date of Service: Sep 26, 2017. Stated Complaint: Renzo, Elevated Troponin, Heroin Abuse, Pneumonia HPI The patient is a 31 year old male who presents to [facility] with complaints of Renzo, Elevated Troponin, Heroin Abuse, Pneumonia. The patient' s primary care provider is No Doctor, Assigned. 31-year-old male admitted status post hair when overdose and noted to have diffuse pulmonary infiltrative process, positive cardiac enzymes and mild hypoxemia noted on pulse oximetry. Patient noted he last use here when at 1300 hours on 09/25/2017. He will the next morning with diffuse myalgias, fatigue and mild hemoptysis. Since that time the patient has had 3 or 4 episodes of hemoptysis 1 this morning which she describes as dried up blood. Patient also awoke yesterday morning with his 3 year partner named Angelo lying next to him . 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 He has a PmHx: heroin overdose x3/chronic abuse, major depressive disorder Inpatient workup WBC: [id number] D-dimer: 2690 Troponin: 0.371--0.262--0.182 Urine tox screen: Ethy alcohol >176, opiates: Positive Hepatitis C antibody: Preliminary positive Hepatitis C RNA: Pending HIV studies: Negative Hepatitis B antibody testing: Pending Microbiology: Sputum expectorated, blood 2pending Right upper extremity ultrasound: No DVT Lower extremity venous ultrasound: No sonographic evidence of DVTs, mildly enlarged nonspecific right inguinal lymph node 1.3 cm short axis CXR compared to 12/20/2014: Increased hilar fullness, peribronchial cuffing, interstitial changes with cephalization right greater than left Echocardiogram 09/26/2017 LV: ef=55-60%, normal function RV: Normal size and function, TAPSE >1.5cm Atria: Left and right within normal limits Valves: Within normal limits RSVP: 30-40mmHg Great vessels: Within normal limits Inpatient medications 1. Levofloxacin 750 mg IV daily 2. NicoDerm patch 14 mg 3. Duo nebs every 4 hours as needed shortness of breath Past medical history: 1. Left arm laceration 11/22/1998 2. Left leg laceration 12/06/1998 3. Heroin overdose 3 4. Alcohol: Denies use 5. Depression 6. Foreign body/glass right third finger 7. Cellulitis of the right leg 8. Obesity Past surgical history 1. None per the patient Social history Narcotics: Chronic heroin abuse Occupation: Marital status: Tobacco history: Current everyday smoker Family history Diabetes, heart disease, hypertension, cancer, lung disease, Outpatient medications Allergies No known drug allergies Historian: patient, EMS Review of Systems Constitutional: reports: weakness Eyes: reports: no symptoms ENT: reports: rhinorrhea Cardiovascular: reports: no symptoms Respiratory: reports: as stated in HPI Gastrointestinal: reports: no symptoms Genitourinary - Male: reports: no symptoms Musculoskeletal: reports: myalgias Integumentary: reports: no symptoms Neurologic: reports: no symptoms Psychiatric: reports: no symptoms Endocrine: no symptoms Hematologic / Lymphatic: no symptoms Allergic / Immunologic: no symptoms Past Medical History Past Medical History: Please refer to HPI Past Surgical History: Please refer to HPI Family History Diabetes mellitus FHx: cancer Heart disease Hypertension Lung disease Please refer to HPI Social History Please refer to HPI Hx Tobacco Use In Past Year?: Yes Smoking Status: Current Every Day Smoker Marital status: single Occupational Status: employed History of MDRO History of MDRO: No Allergies Coded Allergies: No Known Allergies (Unverified , 09/25/17) Current Medications Reported Home Medications Medications Dose Route/Sig Max Daily Dose Days Date Category No Active Prescriptions or Reported Medications Rx Physical Physical Exam Vital Signs: Date Time Temp Pulse Resp B/P (MAP) Pulse Ox O2 Delivery O2 Flow Rate FiO2 09/26/17 12:09 36.8 97 18 135/91 (106) 95 09/26/17 11:02 36.8 92 22 91 09/26/17 07:30 Room Air 09/26/17 07:07 36.8 92 22 137/75 (95) 91 Room Air 09/26/17 04:00 91 Room Air 09/26/17 03:10 36.7 102 21 105/89 (94) 91 Room Air 09/26/17 00:00 92 Room Air 09/25/17 23:10 36.7 93 20 102/66 (78) 92 Room Air 09/25/17 19:41 37.2 97 17 116/78 96 Room Air 09/25/17 18:18 115 20 155/96 95 Room Air 09/25/17 17:47 119 09/25/17 17:03 113 20 155/96 93 Room Air 09/25/17 15:21 113 14 151/97 91 Room Air General Appearance: WELL-APPEARING, NO APPARENT DISTRESS Head: NORMOCEPHALIC, ATRAUMATIC Eyes: PERRLA, NO DISCHARGE, EOMI, SCLERAE NORMAL, CONJUNCTIVAE NORMAL, FUNDUSCOPIC EXAM NORMAL ENT: NORMAL EAR EXAM, NORMAL NASAL EXAM, other (Small bite on the patient's tongue left tip/lateral lingual surface) Neck: NORMAL RANGE OF MOTION, NO TENDERNESS, TRACHEA MIDLINE, NO STRIDOR Respiratory: other (Mild crackles appreciated diffusely) Cardiovasular: REGULAR RATE/RHYTHM, NORMAL S1S2, NO M/G/R, NO MURMUR, NO GALLOP Abdomen: NON TENDER, NORMAL BOWEL SOUNDS, NO REBOUND, NO MASSES, NO GUARDING, NO ORGANOMEGALY, NORMAL RECTAL EXAM Genitourinary - Male: EXTERNAL GENITALIA NORMAL Back: NORMAL INSPECTION, NO MIDLINE TENDERNESS, NO CVA TENDERNESS, NO PARAVERTEBRAL TTP Upper Extremities: NO EDEMA, other (Multiple injection sites noted along his left upper extremity forearm medial lateral region) Lower Extremities: NO EDEMA, NO DEFORMITY, NORMAL ROM Pulses: carotid (R) (2+), carotid (L) (2+), posterior tibial (R) (2+), posterior tibial (L) (2+) Neuro: ALERT, ORIENTED x 3, NORMAL MOTOR EXAM, NORMAL SENSATION, NORMAL CEREBELLAR EXAM, NORMAL SPEECH, NORMAL GAIT Reflexes: biceps (R) (2+), bicpes (L) (2+), achilles (R) (2+), achilles (L) (2+ ) Babinski Testing: right (downgoing), left (downgoing) Psychiatric: NORMAL AFFECT, NO SUICIDAL IDEATION, CONTRACTS FOR SAFETY Diagnostics Labs Results Past 24 Hours Test 09/25/17 16:55 09/25/17 17:15 09/25/17 20:00 09/25/17 21:00 Range/Units Urine Opiates Screen POS NEG Urine Methadone, Qualitative NEG NEG Urine Barbiturates NEG NEG Urine Phencyclidine (PCP) Level NEG NEG Ur Amphetamine/Methamphetamine NEG NEG MDMA (Ecstasy) Screen NEG NEG Urine Benzodiazepines Screen NEG NEG Urine Cocaine Metabolite NEG NEG Urine Marijuana (THC) NEG NEG Prothrombin Time 11.0 9.0-12.0 SECONDS Prothromb Time International Ratio 1.0 0.9-1.1 D-Dimer 2690 0-500 ug/L FEU Creatine Kinase MB Ratio 0-3.0 Creatine Kinase MB 69.1 0.5-3.6 ng/ml Troponin I 0.262 0-0.045 ng/ml Test 09/26/17 02:25 09/26/17 03:47 09/26/17 11:42 09/26/17 11:46 Range/Units Urine Color YELLOW Urine Appearance CLOUDY CLEAR Urine pH 5.0 4.5-7.5 Urine Specific [place] 1.022 1.000-1.030 Urine Protein NEG NEG Urine Glucose (UA) NEG NEG Urine Ketones NEG NEG Urine Occult Blood NEG NEG Urine Nitrite NEG NEG Urine Bilirubin NEG NEG Urine Urobilinogen NEG NEG Urine Leukocyte Esterase NEG NEG Urine WBC (Auto) 1-5 0-5 /hpf Urine RBC (Auto) 0-4 0-4 /hpf Urine Hyaline Casts (Auto) 1-5 0-5 /lpf Urine Epithelial Cells (Auto) 5-10 0-5 /lpf Urine Bacteria (Auto) NEG NEG White Blood Count 12.82 4.8-10.8 K/uL Red Blood Count 4.33 4.7-6.1 M/uL Hemoglobin 13.1 14.0-18.0 g/dL Hematocrit 37.9 42-52 % Mean Corpuscular Volume 87.5 80-100 fL Mean Corpuscular Hemoglobin 30.3 25-34 pg Mean Corpuscular Hemoglobin Concent 34.6 32-36 g/dl RDW Standard Deviation 44.2 36.4-46.3 fL RDW Coefficient of Variation 13.8 11.5-14.5 % Platelet Count 194 130-400 K/uL Mean Platelet Volume 9.9 7.4-10.4 fL Sodium Level 136 136-145 mmol/L Potassium Level 3.3 3.5-5.1 mmol/L Chloride Level 103 98-107 mmol/L Carbon Dioxide Level 27 21-32 mmol/L Anion Gap 6.0 3-11 mmol/L Blood Urea Nitrogen 17 7-18 mg/dl Creatinine 0.83 0.60-1.40 mg/dl Est Creatinine Clear Calc Drug Dose 187.2 ml/min Estimated GFR () 134.9 Estimated GFR (Non- 116.4 BUN/Creatinine Ratio 20.5 10-20 Random Glucose 90 70-99 mg/dl Calcium Level 8.1 8.5-10.1 mg/dl Creatine Kinase MB 41.7 0.5-3.6 ng/ml Creatine Kinase MB Ratio 0-3.0 Troponin I 0.182 0-0.045 ng/ml HIV (1&2) Ab and P24 Ag, 4th Gener NEG NEG Hepatitis B Surface Antigen NEG NEG Hepatitis C Antibody PRELIM POS NEG Microbiology Results 09/25/17 Blood Culture, Received Pending 09/25/17 Blood Culture, Received Pending 09/26/17 Gram Stain, Received Pending 09/26/17 Sputum Culture, Received Pending Diagnostic Radiology Please refer to HPI EKG Interpretation: NORMAL EKG Impression Assessment and Plan 31-year-old male admitted status post heroin overdose with diffuse pulmonary infiltrates, elevated Troponins and mild hypoxemia: 1. Respiratory: Pulmonary complications from heroin use especially injections can have a broad range of physiologic responses in the body such as pneumonia, septic pulmonary emboli, foreign body granulomatosis, bullous lung disease, interstitial lung changes, vasculitis, pulmonary hypertension as well as asthma like reactions and non cardiogenic pulmonary edema. At this time the patient's clinical presentation and current workup do suggest noncardiogenic pulmonary edema. If this is the case the patient's mild hypoxemia as well as pulmonary infiltrate should clear up within a 42-72 hour window. At this time I would like to hold off on a ordering any active labs to workup vasculitis, infectious etiologies a rheumatologic disorders and wait for the 42-72 hour window. 2. Hypoxia: Possible patient's mild hypoxemia is associated with noncardiogenic pulmonary edema secondary to his here when overdose. EKG and cardiac enzymes showed no signs of nusrat cardiac deterioration. 3. Sleep apnea: Patient's clinical history and presentation are suggestive of sleep apnea. This could have been exacerbated by his here when use. Will perform nocturnal desaturation study.
[2017-09-26] MEDS ORDERED: LEVOFLOXACIN / D5W 750 MG in PREMIXED IN D5W 150 ML IV SCH (16:00)
[2017-09-26] MEDS ORDERED: CITALOPRAM 20 MG TAB PO SCH (21:00)
[2017-09-27 00:23] VITALS: BP 153/94; PULSE 91; TEMP 36.7; O2SAT 94
[2017-09-27] MEDS: CLINDAMYCIN IV 600 MG in DEXTROSE 5% 50ML 50 ML IV SCH (05:36)
[2017-09-27 05:41] VITALS: PULSE 84; O2SAT 92
[2017-09-27 07:07] VITALS: BP 143/83; PULSE 79; TEMP 36.8; O2SAT 92
[2017-09-27 07:58] LABS: HEMATOCRIT 37.7 % (42-52); HEMOGLOBIN 12.7 g/dL (14.0-18.0); MEAN CELL VOLUME 87.3 fL (80-100); MEAN CORPUSCULAR HEMOGLOBIN 29.4 pg (25-34); MEAN CORPUSCULAR HGB CONC 33.7 g/dl (32-36); MEAN PLATELET VOLUME 9.9 fL (7.4-10.4); PLATELET COUNT 214 K/uL (130-400); RED CELL DISTRIBUTION WIDTH CV 13.6 % (11.5-14.5); RED CELL DISTRIBUTION WIDTH SD 43.6 fL (36.4-46.3); WHITE BLOOD COUNT 7.66 K/uL (4.8-10.8)
--- NOTE | 2017-09-27 08:04 | DIAGNOSTIC IMAGING REPORT ---
CHEST 2 VIEWS ROUTINE HISTORY: Follow-up right-sided pneumonia COMPARISON: Chest 09/25/2017. FINDINGS: No pneumothorax. No pleural effusions. The heart is normal in size. Improved aeration within the right lung with near complete resolution of the opacity. The left lung remains clear. IMPRESSION: Near complete resolution of the right lung airspace opacity. This may represent a resolving pneumonitis or pulmonary edema. Electronically signed by: Mukul Maldonado M.D. 09/27/2017 8:03 AM Dictated Date/Time: 09/27/2017 8:01 AM
[2017-09-27 08:26] LABS: HEPATITIS A IGM TC 51813E NON-REACTIVE (NON-REACTIVE); HEPATITIS B CORE IGM TC51854R NON-REACTIVE (NON-REACTIVE)
[2017-09-27] MEDS: NICOTINE 14 MG/24 HR TDSY TD SCH (08:28)
[2017-09-27 08:31] LABS: CALCIUM 8.8 mg/dl (8.5-10.1); CREATININE 0.77 mg/dl (0.60-1.40); POTASSIUM 4.1 mmol/L (3.5-5.1)
[2017-09-27] MEDS ORDERED: POTASSIUM CHLORIDE 10 MEQ TABCR PO STA (08:33)
--- NOTE | 2017-09-27 11:26 | Pulmonology Progress Note ---
Pulmonary Progress Note Date of Service Sep 27, 2017. Attending Dr. Jerome Subjective Patient's pulmonary status greatly improved in the last 24 hours. Currently denies any hemoptysis Objective Patient ambulating throughout the room on room air no signs of respiratory insufficiency Vital signs: Stable on room air saturating between 92-95% WBC: [id number] H/H: 13/38 D-dimer: 2690 HIV: Negative Pending HCV RNA Chest x-ray 09/27/2017: Dramatic improvement in the patient's right greater than left opacifications/hilar fullness/peribronchial cuffing Nocturnal oximetry study 09/26-04/2018: SaO2<88% for 21min Medications 1. Levofloxacin 750 mg daily/day 2 2. Clindamycin 600 mg IV every 8 3. Nicotine patch 4. Duo nebs every 4 hours as needed shortness of breath Assessment & Plan 31-year-old male admitted status post heroin overdose with diffuse pulmonary infiltrates, elevated Troponins and mild hypoxemia: 1. Respiratory: Patient's respiratory status has notably stabilized and improved and his chest x-ray is showing dramatic improvement. Patient's clinical presentation and response is classic for noncardiogenic heroin-induced pulmonary edema. This time I do not believe the patient needs further workup/ bronchoscopic evaluation. 2. Nocturnal Hypoxemia: The patient's history and body habitus would suggest SHASHA and his nocturnal desaturation study showed a prolonged period of desaturation up to 21 minutes SaO2 less than 88%. This level of desaturation could be from his current disease or from chronic SHASHA. At this time we should make sure this patient is d/c on 2Lnc while sleeping and my office is going to try and set him up for a home sleep study. Data Medications: Current Inpatient Medications Medications (Trade) Dose Ordered Sig/Raine Route Start Time Stop Time Status Last Admin Dose Admin Acetaminophen (Tylenol Tab) 650 mg Q4H PRN PO 09/25/17 18:15 10/25/17 18:14 Al Hydrox/Mg Hydrox/Simethicone (Maalox Max Susp) 15 ml Q4H PRN PO 09/25/17 18:15 10/25/17 18:14 Magnesium Hydroxide (Milk Of Magnesia Susp) 30 ml Q12H PRN PO 09/25/17 18:15 10/25/17 18:14 Ondansetron HCl (Zofran Inj) 4 mg Q6H PRN IV 09/25/17 18:15 10/25/17 18:14 Nitroglycerin (Nitrostat Tab) 0.4 mg UD PRN SL 09/25/17 18:15 10/25/17 18:14 Polyethylene (Miralax Powder Packet) 17 gm DAILY PRN PO 09/25/17 18:15 10/25/17 18:14 Levofloxacin 750 mg/Prmx 150 ml @ 100 mls/hr Q24H IV 09/26/17 16:00 10/02/17 15:59 09/26/17 15:45 100 MLS/HR Hydralazine HCl (HydrALAZINE INJ) 10 mg Q6H PRN IV. 09/25/17 18:15 10/25/17 18:14 Albuterol/ Ipratropium (Duoneb) 3 ml Q4R PRN INH 09/25/17 18:30 10/25/17 18:29 Nicotine (Nicoderm Cq 14MG Patch) 1 patch QAM TD 09/26/17 09:00 10/26/17 08:59 09/27/17 08:28 1 PATCH Miscellaneous (Remove Nicoderm Patch) 1 ea HS N/A 09/25/17 21:00 10/25/17 20:59 09/26/17 20:57 1 EA Clindamycin Phosphate 600 mg/ Dextrose 54 ml @ 100 mls/hr Q8H IV 09/26/17 14:00 10/03/17 13:59 09/27/17 05:36 100 MLS/HR Citalopram Hydrobromide (celeXA TAB) 20 mg HS PO 09/26/17 21:00 10/26/17 20:59 09/26/17 20:58 20 MG Vital Signs: Date Time Temp Pulse Resp B/P (MAP) Pulse Ox O2 Delivery O2 Flow Rate FiO2 09/27/17 09:00 Room Air 09/27/17 07:07 36.8 79 17 143/83 (103) 92 Room Air 09/27/17 05:41 84 14 92 Room Air 09/27/17 00:23 36.7 91 20 153/94 (113) 94 Room Air 09/27/17 00:00 Room Air 09/26/17 20:00 Room Air 09/26/17 16:45 Room Air 09/26/17 15:23 37.0 100 18 147/84 (105) 95 09/26/17 12:09 36.8 97 18 135/91 (106) 95 Laboratory Results: Last 24 Hours Test 09/26/17 11:42 09/26/17 11:46 09/27/17 07:29 HIV (1&2) Ab and P24 Ag, 4th Gener NEG Hepatitis A IgM Antibody NON-REACTIVE Hepatitis B Surface Antigen NEG Hepatitis B Core IgM Antibody NON-REACTIVE Hepatitis C Antibody PRELIM POS White Blood Count 7.66 K/uL Red Blood Count 4.32 M/uL Hemoglobin 12.7 g/dL Hematocrit 37.7 % Mean Corpuscular Volume 87.3 fL Mean Corpuscular Hemoglobin 29.4 pg Mean Corpuscular Hemoglobin Concent 33.7 g/dl RDW Standard Deviation 43.6 fL RDW Coefficient of Variation 13.6 % Platelet Count 214 K/uL Mean Platelet Volume 9.9 fL Sodium Level 139 mmol/L Potassium Level 4.1 mmol/L Chloride Level 106 mmol/L Carbon Dioxide Level 24 mmol/L Anion Gap 9.0 mmol/L Blood Urea Nitrogen 11 mg/dl Creatinine 0.77 mg/dl Est Creatinine Clear Calc Drug Dose 202.6 ml/min Estimated GFR () 139.2 Estimated GFR (Non- 120.1 BUN/Creatinine Ratio 14.5 Random Glucose 88 mg/dl Calcium Level 8.8 mg/dl
[2017-09-27] MEDS ORDERED: CLX20 PO (12:18)
[2017-09-27] MEDS ORDERED: CLIN300C2 PO (12:18)
--- NOTE | 2017-09-27 12:23 | Discharge Instructions ---
Discharge Instructions Date of Service Sep 27, 2017. Admission Reason for Admission: Renzo, Elevated Troponin, Heroin Abuse, Pneumonia Discharge Discharge Diagnosis / Problem: Hemoptysis,Pneumonia,RENZO,Demand ischemia Discharge Goals Goal(s): Improve disease control, Diagnostic testing, Therapeutic intervention Activity Recommendations Activity Limitations: resume your previous activity Shower/Bathe: no limitations . Instructions / Follow-Up Instructions / Follow-Up You were admitted with coughing up blood after a heroin overdose. You had a suspected aspiration pneumonia, and possible noncardiogenic pulmonary edema related to heroin use. All of your symptoms were significantly improved. Your heart and kidneys are functioning normally. Please finish out a course of antibiotics for the presumed pneumonia. Your ultrasound of the heart shows signs of elevated right heart pressure which may be from undiagnosed sleep apnea. It is recommended that you have a sleep study at some point to look for sleep apnea. You were preliminarily positive for Hepatitis C and your family doctor at [facility] can refer you to Infectious Disease if the confirmatory testing indeed is also positive. Please follow up with [facility] within 1 week after discharge. Current Hospital Diet Patient's current hospital diet: Regular Diet Discharge Diet Recommended Diet: Regular Diet Procedures Procedures Performed: Chest xray x 2 Echocardiogram Overnight oximetry test Pending Studies Studies pending at discharge: yes List of pending studies: final blood culture and sputum culture result Laboratory Results Last 24 Hours Test 09/27/17 07:29 White Blood Count 7.66 K/uL Red Blood Count 4.32 M/uL Hemoglobin 12.7 g/dL Hematocrit 37.7 % Mean Corpuscular Volume 87.3 fL Mean Corpuscular Hemoglobin 29.4 pg Mean Corpuscular Hemoglobin Concent 33.7 g/dl RDW Standard Deviation 43.6 fL RDW Coefficient of Variation 13.6 % Platelet Count 214 K/uL Mean Platelet Volume 9.9 fL Sodium Level 139 mmol/L Potassium Level 4.1 mmol/L Chloride Level 106 mmol/L Carbon Dioxide Level 24 mmol/L Anion Gap 9.0 mmol/L Blood Urea Nitrogen 11 mg/dl Creatinine 0.77 mg/dl Est Creatinine Clear Calc Drug Dose 202.6 ml/min Estimated GFR () 139.2 Estimated GFR (Non- 120.1 BUN/Creatinine Ratio 14.5 Random Glucose 88 mg/dl Calcium Level 8.8 mg/dl Medical Emergencies . Who to Call and When: Medical Emergencies: If at any time you feel your situation is an emergency, please call 911 immediately. . Non-Emergent Contact Non-Emergency issues call your: Primary Care Provider Call Non-Emergent contact if: you have a fever, temperature is above 101, you have any medication questions . . "Provider Documentation" section prepared by Tammi Elliott. .
--- NOTE | 2017-09-27 12:37 | Discharge Summary ---
Discharge Summary Date of Service Sep 27, 2017. Discharge Summary Admission Date: Sep 25, 2017 at 18:13 Discharge Date: Sep 27, 2017 Discharge Disposition: Home Principal Diagnosis: Hemoptysis, Aspiration PNA Problems/Secondary Diagnoses: Sepsis POA Right upper extremity pain and swelling-musculoskeletal injury Major depressive disorder Noncardiogenic pulmonary edema from heroin use Obesity KATHLEEN Demand myocardial ischemia Hypokalemia Hypomagnesemia Hepatitis C antibody preliminarily positive Procedures: Venous Doppler RUE-negative for DVT Chest xray x 2 ECHO: * Left ventricular systolic function is normal. * Right ventricular systolic pressure is elevated at 30-40mmHg. Overnight oximetry-longest continuous pulse ox less than 88% was for 88 seconds , minimum pulse ox 69% 1 Consultations: Pulmonology Psychiatry Medication Reconciliation New Medications: Clindamycin Hcl (Cleocin) 300 Mg Cap 300 MG PO TID for 6 Days, #18 CAP Citalopram (Citalopram Hydrobromide) 20 Mg Tab 20 MG PO HS for 30 Days, #30 TAB Discharge Exam Patient feeling much improved. Denies any further hemoptysis. Having a small amount of sputum coughing up. Denies chest pain. Says his mood is "okay given the circumstances." Discussed the case with pulmonology today who feels that the findings on previous chest x-ray were likely secondary to noncardiogenic pulmonary edema from heroin use. He is committed to abstaining from drug use in the future. Constitutional: No fever Eyes: No worsening of vision ENT: No complaints Respiratory: + cough, + sputum, no shortness of breath or further hemoptysis Cardiovascular: No chest pain Breast: No problem reported Abdomen: No pain, No nausea, No vomiting, No diarrhea, No constipation, No GI bleeding Musculoskeletal: No complaints Male : No dysuria, No problem reported Neurologic: No problem reported Psychiatric: + depression symptoms, negative SI/HI, + substance abuse Heme: No problem reported Endo: No problem reported Skin: No problem reported All Other Systems: Reviewed and Negative Physical Exam General Appearance: WD/WN, no apparent distress, + obese Eyes: normal inspection, PERRL, EOMI, sclerae normal ENT: hearing grossly normal, pharynx normal Neck: supple, no adenopathy, thyroid normal, no JVD, trachea midline Respiratory/Chest: no respiratory distress, no accessory muscle use, a few inspiratory and expiratory wheezes on the right side in all lung mortensen Cardiovascular: regular rate, rhythm, no gallop, no murmur Abdomen: normal bowel sounds, non tender, soft, no organomegaly Extremities: no pedal edema, no calf tenderness, + minimal residual swelling ( Right upper extremity is with trace nonpitting edema mostly from the elbow through the fingertips, no erythema at all, no track evans on the right upper extremity, no palpable cords, positive pain with resisted flexion at the elbow, no point tenderness over the elbow wrist or hand or finger joints.) Neurologic/Psychiatric: alert, oriented x 3, + depressed affect Skin: normal color, warm/dry, no rash, + pertinent finding (Track evans on the left upper extremity, no ulcerations on the legs or feet) Lymphatic: no adenopathy Hospital Course Patient is a 31 y/o male, with PMHx of major depressive disorder, obesity, and heroin abuse, who presented to the ED because of heroin overdose and hemoptysis. Elevated troponin, likely demand ischemia: Serial troponins mildly elevated and decreased since admission, with initial troponin being 0.371. Likely secondary to aspiration pneumonitis and heroin overdose as below. No significant events on telemetry monitoring. ECGs without ischemic changes. No chest pain at all -Echocardiogram with normal LV function, no wall motion abnormalities, with mildly elevated right ventricular systolic pressures Right-sided aspiration pneumonitis/hemoptysis/sepsis POA-likely aspirated while sleeping with respiratory depression from heroin overdose. Leukocytosis and sinus tachycardia on admission are now resolved. Remains afebrile. Hemoptysis is now resolved. Chest x-ray with diffuse right sided opacities suggestive of pulmonary hemorrhage or infection-repeat chest x-ray the following day was almost completely resolved of the previous opacities and points more towards noncardiogenic pulmonary edema secondary to heroin use as per pulmonology opinion -Received IV Levaquin and IV clindamycin for aspiration as well as community- acquired and atypical infection -Consult pulmonary appreciated-no further evaluation needed -Not requiring supplemental O2 - BCx, sputum culture pending no growth to date - Elevated d-dimer, likely secondary to acute infectious process, ruled out for DVT of the right upper extremity in the setting of the edema -Received IV fluids and now discontinued -will finish out total 7 day course of Augmentin for aspiration pneumonitis after discharge -Had overnight oximetry test which may be somewhat suggestive of some SHASHA but not severe enough to require nocturnal O2 at this time-recommend formal sleep study as an outpatient when he obtains insurance Right upper extremity edema and pain-could be musculoskeletal as he was unconscious and he does not know if he had a fall. There is no evidence of acute infection or palpable cord of thrombophlebitis at this time. - right upper extremity venous Doppler negative for DVT -Supportive care KATHLENE: Secondary to sepsis and dehydration, prerenal azotemia. Creatinine 1.79 on admission and now resolved down to 0.77 with IV fluid hydration Hypomagnesemia-magnesium 1.4 on admission, no evidence of cardiac arrhythmias -Tolerating regular diet and should resolve on its own Hypokalemia-replaced with p.o. potassium and resolved Major depressive disorder, recurrent-previously seen by psych and on citalopram , but discontinued due to lack of health insurance. With passive SI, no plans at this time. Seen by psychiatry, removed from a one-on-one observation. - Consult psychiatry, appreciate recommendations to start citalopram and needs outpatient [id number] has been arranged IV drug [id number] other substance abuse except occasional alcohol with 3-4 drinks at a time sporadically. -Patient consents to checking for HIV and acute hepatitis-hep C positive as below, HIV negative -Counseled on repeating HIV testing in 3 months -Counseled on abstinence -He may be interested in rehab, and he will look into this Hepatitis C positive antibody screening/elevated AST-hepatitis C RNA is pending at the time of discharge. AST is mildly elevated at 76 -Should follow-up with a PCP at [facility] who can follow-up on his hepatitis C RNA -If active infection, should be referred to infectious disease for consideration for treatment. -Should have LFTs followed as an outpatient Tobacco abuse: - Nicotine patch - Smoking cessation counseling Stable for discharge to home Total Time Spent: Greater than 30 minutes This includes examination of the patient, discharge planning, medication reconciliation, and communication with other providers. Discharge Instructions Please refer to the electronic Patient Visit Report (Discharge Instructions) for additional information. Follow-Up With PCP within 1 week With psychiatry within 1 week
[2017-09-27 12:53] VITALS: BP 143/83; PULSE 79; TEMP 36.8; O2SAT 92
== END 2017-09-27 13:05 | disposition home or self-care (01) | DRG 871 ==
LOC: EDBD 12:53 → C.EDB 12:54 → C.2E 18:13 → ENRESERV 18:37 → EDBEDREQ 09-26 10:41 → ENRESERV 09-26 10:47 → C.MS2W 09-26 11:35
PROVIDERS: ADMIT Internal Medicine; ATTEND Family Medicine
DX: A41.9 Sepsis, unspecified organism (principal); J69.0 Pneumonitis due to inhalation of food and vomit; N17.9 Acute kidney failure, unspecified; I24.8 Other forms of acute ischemic heart disease; R04.2 Hemoptysis; F33.9 Major depressive disorder, recurrent, unspecified; Z68.42 Body mass index [BMI] 45.0-49.9, adult; T40.1X1A Poisoning by heroin, accidental (unintentional), initial encounter; F11.10 Opioid abuse, uncomplicated; M79.601 Pain in right arm; E87.6 Hypokalemia; E83.42 Hypomagnesemia; R09.02 Hypoxemia; R79.89 Other specified abnormal findings of blood chemistry; I10 Essential (primary) hypertension; E66.9 Obesity, unspecified; F17.200 Nicotine dependence, unspecified, uncomplicated; Z83.3 Family history of diabetes mellitus; Z82.49 Family history of ischemic heart disease and other diseases of the circulatory system; Z81.3 Family history of other psychoactive substance abuse and dependence